=== PATIENT | male | born 1950 | race Caucasian/White ===

== ENCOUNTER 2017-02-20 07:11 | Emergency (ER) | payer MEDICARE, MEDICAID ==
[~2017-02-20] VITALS: Ht 172.7 cm; Wt 80.0 kg
[~2017-02-20 07:11] MED LIST: DIPH25CA83 PO; OXYB15TA9 PO; SIMV20TA6 PO; TEGRETOL PO
[2017-02-20] MEDS ORDERED: ONDANSETRON HCL 4MG/2ML VIAL IV STA (09:51)
[2017-02-20] MEDS ORDERED: SODIUM CHLORIDE 0.9% 1,000 ML IV ONE (09:51)
[2017-02-20 10:45] LABS: BASOPHILS % 0.4 % (0.0-2.0); HEMATOCRIT. 44.7 % (42.0-52.0); HEMOGLOBIN. 15.2 g/dL (14.0-18.0); LYMPHOCYTES % 11.3 % (20.0-50.0); MEAN CORPUSCULAR HEMOGLOBIN 30.5 pg (28.0-32.0); MEAN CORPUSCULAR VOLUME 89.8 fL (80.0-94.0); MEAN PLATELET VOLUME 7.9 fl (7.4-10.4); MONOCYTES % 8.4 % (2.0-8.0); NEUTROPHILS % 79.9 % (40.0-76.0); PLATELET 253 x1000/uL (130-400); RED BLOOD CELL COUNT 4.98 mill/uL (4.7-6.1); RED CELL DISTRIBUTION WIDTH 13.4 % (11.6-14.6)
[2017-02-20] MEDS ORDERED: ACETAMINOPHEN 325MG TABLET PO ONE (10:45)
[2017-02-20 10:49] LABS: PROTHROMBIN TIME 10.7 sec (9.4-11.6)
[2017-02-20 10:57] LABS: CARBON DIOXIDE 26 mEq/L (21-32); CHLORIDE 104 mEq/L (98-107)
[2017-02-20 14:02] VITALS: BP 118/69
== END 2017-02-20 14:07 | disposition home or self-care (01) ==
LOC: ER 07:27
DX: R11.2 Nausea with vomiting, unspecified (principal); R00.0 Tachycardia, unspecified; F84.0 Autistic disorder; G40.909 Epilepsy, unspecified, not intractable, without status epilepticus
CPT/HCPCS: 36415; 71045; 80053; 83605; 85025; 85610; 87040; 93005; 96361; 96374; 99285; J2405; J7030

== ENCOUNTER 2020-03-30 22:17 | Emergency (ER) | payer MEDICARE, MEDICAID ==
[~2020-03-30] VITALS: Ht 172.7 cm; Wt 75.0 kg
[~2020-03-30 22:17] MED LIST changes: +SIMV-43 PO; -SIMV20TA6 PO
[2020-03-31 00:30] VITALS: BP 149/71
[2020-03-31] MEDS ORDERED: ACETAMINOPHEN 325MG TABLET PO ONE (00:30)
== END 2020-03-31 02:41 | disposition home or self-care (01) ==
LOC: ER 22:17
DX: S00.03XA Contusion of scalp, initial encounter (principal); W18.39XA Other fall on same level, initial encounter; Y93.89 Activity, other specified; Y92.89 Other specified places as the place of occurrence of the external cause; Y99.8 Other external cause status; R56.9 Unspecified convulsions; Z79.899 Other long term (current) drug therapy
CPT/HCPCS: 12011; 70486; 73130; 99284

== ENCOUNTER 2022-12-20 12:50 | Emergency (ER) | payer MEDICARE, MEDICAID ==
[~2022-12-20] VITALS: Ht 175.3 cm; Wt 109.0 kg
[2022-12-20 12:59] VITALS: O2SAT 99
[2022-12-20] MEDS ORDERED: BO1 TP (14:50)
[2022-12-20 15:16] VITALS: BP 128/61; PULSE 65; RESP 18; TEMP 98
== END 2022-12-20 15:17 | disposition home or self-care (01) ==
LOC: ER 14:03
DX: S00.31XA Abrasion of nose, initial encounter (principal); W01.0XXA Fall on same level from slipping, tripping and stumbling without subsequent striking against object, initial encounter; Y93.89 Activity, other specified; Y92.89 Other specified places as the place of occurrence of the external cause; Y99.8 Other external cause status
CPT/HCPCS: 99282